=== PATIENT | male | born 1975 | race Caucasian/White ===

== ENCOUNTER 2020-04-10 09:28 | Outpatient (REF) | payer OTHER, SELFPAY ==
[2020-04-10 10:27] LABS: MANUAL DIFF FLAG NO
[2020-04-10 10:37] LABS: Basophils Percent Auto 0.5 % (0-2); Hematocrit 41.9 % (42-52); Hemoglobin 14.9 g/dl (14.0-18.0); Lymphocytes Absolute Auto 1.5 X10*3/uL (1.2-4.9); Lymphocytes Percent Auto 38.3 % (20-40); Mean Corpuscular HGB Conc 35.6 g/dl (31.0-36.0); Mean Corpuscular Hemoglobin 31.4 pg (27.0-33.0); Mean Corpuscular Volume 88.4 fL (80-98); Mean Platelet Volume 8.9 fL (9.4-12.4); Monocytes Absolute Auto 0.4 X10*3/uL (0.1-1.2); Monocytes Percent Auto 10.9 % (2-11); Neutrophils Absolute Auto 1.9 X10*3/uL (2.0-8.3); Neutrophils Percent Auto 49.3 % (45-73); Platelet Count 259 X10*3/uL (160-400); Red Blood Count 4.74 X10*6/uL (4.60-5.80); Red Cell Distribution Width 11.5 % (11.0-16.0); White Blood Count 3.8 X10*3/uL (4.8-10.8)
[2020-04-10 10:55] LABS: Alanine Aminotransferase 26 U/L (0-40); Albumin Level 4.5 g/dL (3.5-5.0); Alkaline Phosphatase 52 U/L (39-117); Anion Gap 13 (12-20); Aspartate Amino Transferase 24 U/L (5-37); Bilirubin Total 2.1 mg/dL (0.0-1.0); Blood Urea Nitrogen 18 mg/dL (9-16); Calcium 9.2 mg/dL (8.4-10.2); Carbon Dioxide 28 mmol/L (22-29); Chloride 103 mmol/L (96-108); Cholesterol 207 mg/dL; Estimated Glomerular Filt Rate > 60; Glucose Random 70 mg/dL (60-115); HDL Cholesterol 62 mg/dL; LDL Cholesterol Calculated 134 mg/dl; Potassium 4.3 mmol/l (3.3-5.1); Sodium 140 mmol/L (135-145); Total Protein 7.3 g/dL (6.5-8.0); Triglycerides 57 mg/dL
== END 2020-04-10 09:29 | disposition home or self-care (01) ==
LOC: HO.LAB 09:28
PROVIDERS: Visit Provider Internal Medicine
DX: Z00.00 Encounter for general adult medical examination without abnormal findings (principal); K21.9 Gastro-esophageal reflux disease without esophagitis; Z13.220 Encounter for screening for lipoid disorders
CPT/HCPCS: 36415; 80053; 80061; 85025

== ENCOUNTER → 2020-05-05 11:48 | Outpatient (BNVA) | payer OTHER, SELFPAY | PROVIDERS: PCP Internal Medicine; Visit Provider Physician Assistant | DX: Z76.89 Persons encountering health services in other specified circumstances (principal) ==

== ENCOUNTER 2020-07-29 10:03 | Day surgery (SDC) | payer OTHER, SELFPAY ==
--- NOTE | 2020-07-28 09:37 | P.CONAN_ITS ---
Documented by User: Mabel Bustamante 07/28/20 09:40 HPI - Anesthesia Eval Consult details Narrative: 44yo M for Upper Endoscopy [facility] Active Problems Active Problems: All Active Problems (Updated 05/05/20 @ 12:30 by Jacqueline Zapata PA-C) Acid reflux (Acute) Past Medical History Medical History Acid reflux Family History Family History Mother Chronic GERD Father Prostate cancer Surgical History Surgical History H/O lumbar discectomy Social History Social History Alcohol intake: current Smoking Status: Never smoker Use of substances other than those prescribed or required for medical reasons: No Advance Directives Information Provided: No service: Yes Current occupational status: employed Current occupation: [employer] Allergies Allergy/AdvReac Type Severity Reaction Status Date / Time No Known Allergies Allergy Verified 07/29/20 10:29 Home Medications Medication Instructions Recorded Confirmed Last Taken Type omeprazole 20 mg capsule,delayed 20 mg PO DAILY 05/05/20 07/24/20 Unknown History release Exam Exam Date and Time: July 28, [id number] Assessment and Plan Assessment Anesthesia Assessment: Chart Reviewed Documented by User: Sandy De La O 07/29/20 11:07 [facility] Past Medical History Medical History Acid reflux Family History Family History Mother Chronic GERD Father Prostate cancer Surgical History Surgical History H/O lumbar discectomy Social History Social History Alcohol intake: current Smoking Status: Never smoker Use of substances other than those prescribed or required for medical reasons: No Advance Directives Information Provided: No service: Yes Current occupational status: employed Current occupation: [employer] Med[employer] Allergies Allergy/AdvReac Type Severity Reaction Status Date / Time No Known Allergies Allergy Verified 07/29/20 10:29 Home Medications Medication Instructions Recorded Confirmed Last Taken Type omeprazole 20 mg capsule,delayed 20 mg PO DAILY 05/05/20 07/24/20 Unknown History release Exam Airway Mallampati Class: II TM Dist: >3cm Neck ROM: Full Loose/Missing/Broken Teeth: No Heart: RRR Lungs: CTA Assessment and Plan Assessment Anesthesia Assessment: Anesthesia Plan Discussed and Chart Reviewed Final Anesthetic Review NPO: Yes ASA Class: I Final Preanesthetic Review: Meds/Allgs Chart Reviewed, Consent Obtained/Reviewed and Anes Risks/Benef Reviewed Patient Risk: Low Procedure Risk: Intermediate Anesthetic Plan Anesthetic Plan: MAC: Disposition: Standard PACU
[2020-07-29 10:30] VITALS: BP 106/67; PULSE 55; RESP 16; TEMP 36.4; O2SAT 97; BMI 26.5
[2020-07-29] MEDS: Lactated Ringers 1,000 ML 100 ML IVCONT (10:46)
--- NOTE | 2020-07-29 11:17 | MHC.SHP ---
Pre-Procedural Eval Section B Chief Complaint: gerd Relevant Social History: None Present Medications: see Short Stay Collaborative assessment Medical History: Significant History (gerd) History of Previous Operations: Relevant previous surgery/procedure and date(s) (H/O lumbar discectomy) Allergies: Allergies Allergy/AdvReac Type Severity Reaction Status Date / Time No Known Allergies Allergy Verified 07/29/20 10:29 Review of Systems Sugical H&P ROS: Negative: Constitution, Cardiovascular, Respiratory, Neurological, Psychiatric, Hem-Onc, Allergic/Immunologic, Gastrointestinal, Genitourinary, Musculoskeletal, Integumentary, Endocrine and Eyes/Ears/Nose/Throat Exam Surgical H&P Exam: Normal: HEENT, Normal: Heart, Normal: Lungs, Normal: Extremities, Normal: Abdomen, Normal: Skin and Normal: Neurological Plan Diagnosis/Plan: Unchanged I have reviewed the history and physical and performed a pertinent physical examination on my patient. No changes have occurred unless specified.
--- NOTE | 2020-07-29 11:42 | PM.OP ---
Brief Operative Note Date of Service: 07/29/20 Pre-op diagnosis: GERD Post-op diagnosis: same Procedure: see op note Surgeon: Alexia Ashley MD Anesthesia: MAC Estimated blood loss (mL): 0 Condition: stable Disposition: PACU
--- NOTE | 2020-07-29 11:42 | W.PM.OPN ---
Operative Note Operative Note Date of Service: 07/29/20 Narrative: Procedure Description: EGD FLEXIBLE TRANSORAL UPPER GASTROINTESTINAL ENDOSCOPY UPPER ENDOSCOPY Consent: Indications for the procedure and potential complications of bleeding, perforation, reaction to medications and missed diagnosis were discussed with the patient and informed consent was obtained. Instrument: Olympus GIF H 190 J mid size upper endoscope Monitoring: Vital signs and clinical assessment, continuous EKG monitoring, Pulse oximetry, Carbon Dioxide monitoring and blood pressure monitoring were done throughout the procedure. Procedure: The patient was placed in the left lateral decubitis position and pre-procedure medications were administered and a bite block was placed. The endoscope was inserted into the mouth and advanced under direct vision to the third part of duodenum. A careful inspection was made as the upper endoscope was withdrawn including a retroflexed examination of the proximal stomach; Findings and interventions are described below. Findings: Larynx:normal Esophagus: GE junction at 42 cm, diaphragm hiatus at 42 cm, mild esophagitis, bx taken from GEJ, distal esophagus and proximal esophagus in different jars. Stomach: Patchy gastric erythema in antrum. Biopsies were obtained. Grade 2 flap valve on retroflexed examination of the cardia. Few fundic gland polyps noted. Duodenum: Normal bulb and descending duodenum, bx taken Intervention: Biopsies as noted above Impression/Findings: gastritis esophagitis PLAN: consider changing PPI check for nsaid use if ongoing sx then maybe refer for surgical options e.g linx or fundoplication vs hybrid APC of GEJ stress reduction
[2020-07-29 11:45] VITALS: BP 101/51; PULSE 56; RESP 16; TEMP 36.1; O2SAT 96
[2020-07-29 12:00] VITALS: BP 116/62; PULSE 57; RESP 18; O2SAT 99
== END 2020-07-29 12:35 | disposition home or self-care (01) ==
PROVIDERS: PCP Internal Medicine; Visit Provider Internal Medicine Gastroenterology
PROC: 0DJ08ZZ Inspection of Upper Intestinal Tract, Via Natural or Artificial Opening Endoscopic (ICD-10-PCS; CPT 43235; principal; 2020-07-29 12:00)
DX: K21.00 Gastro-esophageal reflux disease with esophagitis, without bleeding (principal); K29.50 Unspecified chronic gastritis without bleeding; K44.9 Diaphragmatic hernia without obstruction or gangrene; K31.7 Polyp of stomach and duodenum; Z79.899 Other long term (current) drug therapy
CPT/HCPCS: 43239; 88305; 88342

== ENCOUNTER → 2020-09-22 09:15 | Outpatient (BNVA) | payer OTHER, SELFPAY | PROVIDERS: PCP Internal Medicine; Visit Provider Physician Assistant ==

== ENCOUNTER → 2021-09-28 12:58 | Outpatient (BNVA) | payer OTHER, SELFPAY | PROVIDERS: PCP Internal Medicine; Referring Provider Internal Medicine; Visit Provider Internal Medicine Cardiovascular Disease | DX: R06.02 Shortness of breath (principal); R06.81 Apnea, not elsewhere classified | CPT/HCPCS: 93005; 99202 ==

== ENCOUNTER → 2021-10-27 14:56 | Outpatient (REF) | payer OTHER, SELFPAY ==
--- NOTE | 2021-10-27 15:01 | HM_ITS ---
Conclusion: 1. Patient was monitored for total period of 2 days and 22 hours 2. Baseline was normal sinus rhythm with average heart rate of 59 beats per minute 3. No significant pauses noted 4. 3 short episodes of supraventricular tachycardia noted with longest lasting 12 beats 5. Very rare ectopy 6. No patient reported events MTDD
--- NOTE | 2021-10-27 15:01 | CA_ITS ---
Transthoracic Echocardiogram Patient (Last, First, Middle): Umair Hunter M Gender: Male Date of : 1975 Age: 45 Procedure Date: 10/27/2021 Procedure Type: Transthoracic Echocardiogram Location: OP Height: 177.8 cm Weight: 86.18 kg BSA: 2.04 m2 Heart Rate: bpm BP: 118 / 60 mmHg Bedspread Inspector: Referring MD: Isidoro Galdamez MD Pretzel Packer: Isidoro Galdamez MD Symptoms: R06.02 - Shortness of breath Study Quality: Good ECG Rhythm: Sinus Conclusions: - Normal study Findings Left Ventricle Normal left ventricular size, thickness, and systolic function. The visually estimated ejection fraction is between 55-60%. Spectral Doppler is indicative of a normal filling pattern. Right Ventricle Normal right ventricular cavity size and systolic function. Atria Both atria are normal in size. There is no evidence of interatrial shunt. Aortic Valve Normal aortic valve structure and function. There is no aortic valve stenosis. There is no aortic valve regurgitation. Mitral Valve Normal mitral valve structure and function. There is trace mitral valve regurgitation. There is no mitral valve stenosis. Pulmonic Valve The pulmonic valve is likely normal. Tricuspid Valve Normal tricuspid valve structure. There is trace tricuspid valve regurgitation. The right ventricular systolic pressure is normal. The right ventricular systolic pressure is 22 mmHg. Normal right atrial pressure. There is no evidence of pulmonary hypertension. Great Vessels All visible segments of the aorta are normal in size. The pulmonary artery was not well visualized. Venous The inferior vena cava is normal in size and collapses greater than 50% with inspiration. Pericardium/Pleural There is no evidence of pericardial effusion. Measurements 2D Linear Measurements IVSd: 1.05 0.6-0.9/0.6-1.0 cm LVIDd: 4.85 3.9-5.3/4.2-5.9 cm LVIDd Index: 2.38 2.4-3.2/2.2-3.1 cm/m2 LVIDs: 3.09 2.0-3.6 cm LVPWd: 0.99 0.7-1.1 cm LA Diam: 4.00 2.7-3.8/3.0-4.0 cm LAIDs Index: 1.96 1.5-2.3 cm/m2 LV Mass: 221.37 67-162/88-224 g LV Mass Index: 108.51 43-95/49-115 g/m2 LVOT Diam: 2.30 3.0+(-)1.3 cm 2D Systolic Function EF 4C: 51.70 >55% EF 2C: 60.30 >55% EF BiP: 55.80 >55% Mitral Valve MV Pk E: 0.86 MV PK A: 0.54 MV Decel Time: 320.00 E/A: 1.60 E'Lateral: 14.00 E'Medial: 11.30 E/E' Med: 7.60 E/E' Lat: 6.10 PHT: 94.00 MVA PHT: 2.34 Decel [place]: 2.67 Aortic Valve AoV Pk Zachary: 1.32 AoV Mn Zachary: 0.88 AoV VTI: 0.32 AoV Pk Grad: 7.00 Aov Mn Grad: 4.00 CRISTINO Cont.VTI: 2.88 LVOT LVOT Pk Zachary: 1.04 LVOT Mn Zachary: 0.66 LVOT VTI: 0.22 LVOT Pk Grad: 4.00 LVOT Mn Grad: 2.00 LVOT Diam: 2.30 LVOT Area: 4.15 Diastolic Function MV Pk E: 0.86 MV Pk A: 0.54 E/A: 1.60 E'Medial: 11.30 E/E' Med: 7.60 E' Laterial: 14.00 E/E' Lat: 6.10 Right Ventricle TAPSE (mm): 30.00 TVS' Zachary: 12.30 Tricuspid Valve TR Pk Zachary: 2.18 TR Pk Grad: 19.00 RA Press: 3.00 RVSP: 22.00 Great Vessels Aorta Sinus of Valsalva: 3.00 2.0-3.5 cm Ao Asc: 2.60 2.1-3.4 cm Pulmonary Valve PV Pk Zachary: 1.20 Peak PV Grad: 6.00 Updated in Other Vendor System with Status of Final Isidoro Galdamez MD electronically signed on 10/28/2021 8:29:40 AM with status of Final
== END ==
LOC: HO.CARD 14:56
PROVIDERS: PCP Internal Medicine; Visit Provider Internal Medicine Cardiovascular Disease
DX: R06.02 Shortness of breath (principal)
CPT/HCPCS: 93242; 93306

== ENCOUNTER → 2021-11-08 08:34 | Outpatient (REF) | payer OTHER, SELFPAY ==
--- NOTE | 2021-11-08 08:37 | CA_ITS ---
Acquisition Time: 2021-11-08 08:37:55 Total Exercise Time: 00:12:00 Test Indications: CP Medications: SEE CHART Protocol: JUAN DAVID Max HR: 162 BPM 91% of Pred: 177 BPM Max BP: 170/030 mmHG Max Work Load: 13.7 METS Exercise stress test with exercise 12 min of Juan David protocol, achieving 91% MPHR. 13.4 METs, without anginal symptoms, without arrythmia, with normotensive response to exercise, without EKG changes meeting criteria for ischemia: there is artifact present at and near peak exercise making tracings more challenging to read however no consistent or clear ischemia noted.. Test reviewed with Dr Gallegos. Referred By: Isidoro Galdamez Overread By: PACO REZA
== END ==
LOC: HO.CARD 08:34
PROVIDERS: Visit Provider Internal Medicine Cardiovascular Disease
DX: R06.02 Shortness of breath (principal)
CPT/HCPCS: 93017

== ENCOUNTER → 2021-12-06 20:45 | Outpatient (REF) | payer OTHER, SELFPAY | LOC: HO.SL 20:45 | PROVIDERS: Visit Provider Internal Medicine Cardiovascular Disease | DX: R06.81 Apnea, not elsewhere classified (principal) | CPT/HCPCS: 95806 ==

== ENCOUNTER → 2021-12-22 15:11 | Outpatient (BNVA) | payer OTHER, SELFPAY | PROVIDERS: PCP Internal Medicine; Referring Provider Internal Medicine; Visit Provider Internal Medicine Cardiovascular Disease | DX: G47.30 Sleep apnea, unspecified (principal); R06.02 Shortness of breath | CPT/HCPCS: 99212 ==

== ENCOUNTER → 2022-03-23 07:54 | Outpatient (BNVA) | payer OTHER, SELFPAY | PROVIDERS: PCP Internal Medicine; Visit Provider Nurse Practitioner Family | DX: R06.83 Snoring (principal); R06.02 Shortness of breath; R40.0 Somnolence; K21.9 Gastro-esophageal reflux disease without esophagitis; Z79.899 Other long term (current) drug therapy | CPT/HCPCS: 99202 ==

== ENCOUNTER 2022-11-15 09:53 | Outpatient (REF) | payer OTHER, SELFPAY ==
[2022-11-15 10:49] LABS: Eosinophils Absolute Auto 0.1 X10*3/uL (0.0-0.4); Eosinophils Percent Auto 2.2 % (0-4); Hematocrit 44.3 % (42.0-52.0); Hemoglobin 15.4 g/dl (14.0-18.0); Lymphocytes Absolute Auto 1.3 X10*3/uL (1.2-4.9); Lymphocytes Percent Auto 41.4 % (20-40); MANUAL DIFF FLAG NO; Mean Corpuscular HGB Conc 34.8 g/dl (31.0-36.0); Mean Corpuscular Volume 89.1 fL (80.0-98.0); Mean Platelet Volume 9.3 fL (9.4-12.4); Monocytes Absolute Auto 0.3 X10*3/uL (0.1-1.2); Monocytes Percent Auto 8.9 % (2-11); Neutrophils Absolute Auto 1.5 x10*3/uL (2.0-8.3); Neutrophils Percent Auto 46.5 % (45-73); Platelet Count 243 X10*3/uL (160-400); Red Blood Count 4.97 X10*6/uL (4.60-5.80); Red Cell Distribution Width 11.6 % (11.0-16.0); White Blood Count 3.1 X10*3/uL (4.8-10.8)
[2022-11-15 11:17] LABS: Alanine Aminotransferase 34 U/L (0-40); Albumin Level 4.7 g/dL (3.5-5.0); Alkaline Phosphatase 48 U/L (39-117); Anion Gap 9 (12-20); Aspartate Amino Transferase 24 U/L (5-37); Bilirubin Total 1.5 mg/dL (0.0-1.0); Blood Urea Nitrogen 16 mg/dL (9-16); Calcium 9.9 mg/dL (8.4-10.2); Carbon Dioxide 32 mmol/L (22-29); Chloride 104 mmol/L (96-108); Cholesterol 146 mg/dL; Estimated Glomerular Filt Rate > 60; Glucose Fasting 97 mg/dL (60-99); HDL Cholesterol 61 mg/dL; LDL Cholesterol Calculated 74 mg/dl; Potassium 4.3 mmol/L (3.3-5.1); Sodium 141 mmol/L (135-145); Thyroid Stimulating Hormone 0.97 uIU/mL (0.32-4.0); Total Protein 7.6 g/dL (6.5-8.0); Triglycerides 59 mg/dL
[2022-11-15 12:35] LABS: Folate 9.7 ng/mL (> or = 4.0); Prostate Specific Antigen 0.98 ng/mL (<0.05-4.0); Vitamin B12 362 pg/mL (200-900)
== END 2022-11-15 09:54 | disposition home or self-care (01) ==
LOC: HO.10HDL 09:53
PROVIDERS: Visit Provider Internal Medicine
DX: Z00.00 Encounter for general adult medical examination without abnormal findings (principal); Z12.5 Encounter for screening for malignant neoplasm of prostate; E78.00 Pure hypercholesterolemia, unspecified; I10 Essential (primary) hypertension; K20.90 Esophagitis, unspecified without bleeding; Z80.42 Family history of malignant neoplasm of prostate
CPT/HCPCS: 36415; 80053; 80061; 82607; 82746; 84153; 84443; 85025

== ENCOUNTER 2023-06-22 07:45 | Outpatient (REF) | payer OTHER, SELFPAY ==
[2023-06-22 10:54] LABS: MANUAL DIFF FLAG NO
[2023-06-22 11:06] LABS: Basophils Percent Auto 1.1 % (0-2); Eosinophils Absolute Auto 0.1 X10*3/uL (0.0-0.4); Eosinophils Percent Auto 2.2 % (0-4); Hematocrit 41.8 % (42.0-52.0); Hemoglobin 14.7 g/dl (14.0-18.0); Imm Gran Abs Auto 0.01 X10*3/uL (0.00-0.03); Imm Gran Pct Auto 0.3 % (0.0-0.4); Lymphocytes Absolute Auto 1.4 X10*3/uL (1.2-4.9); Lymphocytes Percent Auto 40.1 % (20-40); Mean Corpuscular HGB Conc 35.2 g/dl (31.0-36.0); Mean Corpuscular Hemoglobin 30.9 pg (27.0-33.0); Monocytes Absolute Auto 0.3 X10*3/uL (0.1-1.2); Monocytes Percent Auto 8.1 % (2-11); Neutrophils Absolute Auto 1.7 x10*3/uL (2.0-8.3); Neutrophils Percent Auto 48.2 % (45-73); Platelet Count 230 X10*3/uL (160-400); Red Blood Count 4.75 X10*6/uL (4.60-5.80); Red Cell Distribution Width 11.8 % (11.0-16.0); White Blood Count 3.6 X10*3/uL (4.8-10.8)
[2023-06-22 11:30] LABS: Alanine Aminotransferase 39 U/L (0-40); Albumin Level 4.3 g/dL (3.5-5.0); Alkaline Phosphatase 45 U/L (39-117); Anion Gap 10 (12-20); Aspartate Amino Transferase 28 U/L (5-37); Bilirubin Total 1.5 mg/dL (0.0-1.0); Blood Urea Nitrogen 16 mg/dL (9-16); Calcium 9.2 mg/dL (8.4-10.2); Carbon Dioxide 30 mmol/L (22-29); Chloride 105 mmol/L (96-108); Cholesterol 157 mg/dL (<200); Estimated Glomerular Filt Rate > 60; Glucose Random 85 mg/dL (60-115); HDL Cholesterol 64 mg/dL (>40); LDL Cholesterol Calculated 81 mg/dL (<100); Potassium 3.8 mmol/L (3.3-5.1); Sodium 141 mmol/L (135-145); Triglycerides 63 mg/dL (<150)
== END 2023-06-22 07:46 | disposition home or self-care (01) ==
LOC: HO.10HDL 07:45
PROVIDERS: Visit Provider Internal Medicine
DX: Z00.00 Encounter for general adult medical examination without abnormal findings (principal); E78.00 Pure hypercholesterolemia, unspecified; I10 Essential (primary) hypertension; M54.2 Cervicalgia
CPT/HCPCS: 36415; 80053; 80061; 85025

== ENCOUNTER 2023-11-16 12:17 | Outpatient (REF) | payer OTHER, SELFPAY ==
[2023-11-16 13:32] LABS: Alanine Aminotransferase 27 U/L (0-40); Albumin Level 4.6 g/dL (3.5-5.0); Alkaline Phosphatase 49 U/L (39-117); Aspartate Amino Transferase 20 U/L (5-37); Bilirubin Direct 0.4 mg/dL (0.0-0.5); Bilirubin Total 1.3 mg/dL (0.0-1.0); Total Protein 7.3 g/dL (6.5-8.0)
== END 2023-11-16 12:18 | disposition home or self-care (01) ==
LOC: HO.10HDL 12:17
PROVIDERS: Visit Provider Internal Medicine
DX: E80.6 Other disorders of bilirubin metabolism (principal)
CPT/HCPCS: 36415; 80076

== ENCOUNTER 2024-02-28 09:47 | Day surgery (SDC) | payer BC, SELFPAY ==
[2024-02-26 14:26] VITALS: BMI 25.1
--- NOTE | 2024-02-27 08:35 | P.CONAN_ITS ---
Documented by User: Mabel Bustamante NP 02/27/24 08:35 HPI - Anesthesia Eval Consult details Narrative: 48yo M for Upper Endoscopy and Colonoscopy [facility] Active Problems Active Problems: All Active Problems Daytime sleepiness (Acute) Snoring (Acute) SOB (shortness of breath) (Acute) Acid reflux (Acute) Past Medical History Medical History IBS (irritable bowel syndrome) Acid reflux Family History Family History Mother Chronic GERD Father Prostate cancer Surgical History Surgical History History of surgery on arm History of esophagogastroduodenoscopy (EGD) H/O lumbar discectomy Social History Social History (Updated 02/26/24 @ 14:25 by Comfort Zamora RN) Household Members: None Household Members Other:: alone Are you a primary career law clerk to a significant other at home: No Do you presently have visiting nurse or other home services: No Alcohol intake: current Alcohol intake frequency: 3 or more drinks per day Patient Tobacco Use Status: Never used Tobacco Use of substances other than those prescribed or required for medical reasons: No Have you been hit, kicked, punched, or otherwise hurt by someone within the past year? If so, by whom?: No Are you DNR?: No Advance Directives: No Advance Directives Information Provided: Yes Recently lost weight without trying: No Nutrition Risks: No Nutritional Risk service: Yes Current occupational status: employed Current occupation: [employer] Allergies Allergy/AdvReac Type Severity Reaction Status Date / Time No Known Allergies Allergy Verified 03/23/22 08:08 Home Medications ?Medication ?Instructions ?Recorded ?Confirmed ?Last Taken ?Type omeprazole 20 mg capsule,delayed 20 mg PO DAILY 05/05/20 02/26/24 Unknown History release atorvastatin 20 mg tablet 20 mg PO DAILY 09/28/21 02/26/24 Unknown History Exam Height,Weight and Vital Signs: Height 5 ft 10 in Weight 79.379 kg Assessment and Plan Assessment Anesthesia Assessment: Chart Reviewed Documented by User: Lucía Munoz MD 02/28/24 10:59 [facility] Past Medical History Medical History IBS (irritable bowel syndrome) Acid reflux Family History Family History Mother Chronic GERD Father Prostate cancer Family history of problems with anesthesia: No Surgical History Surgical History History of surgery on arm History of esophagogastroduodenoscopy (EGD) H/O lumbar discectomy History of Problems with Anesthesia: No Social History Social History (Updated 02/26/24 @ 14:25 by Comfort Zamora RN) Household Members: None Household Members Other:: alone Are you a primary career law clerk to a significant other at home: No Do you presently have visiting nurse or other home services: No Alcohol intake: current Alcohol intake frequency: 3 or more drinks per day Patient Tobacco Use Status: Never used Tobacco Use of substances other than those prescribed or required for medical reasons: No Have you been hit, kicked, punched, or otherwise hurt by someone within the past year? If so, by whom?: No Are you DNR?: No Advance Directives: No Advance Directives Information Provided: Yes Recently lost weight without trying: No Nutrition Risks: No Nutritional Risk service: Yes Current occupational status: employed Current occupation: [employer] Allergies Allergy/AdvReac Type Severity Reaction Status Date / Time No Known Allergies Allergy Verified 03/23/22 08:08 Home Medications ?Medication ?Instructions ?Recorded ?Confirmed ?Last Taken ?Type omeprazole 20 mg capsule,delayed 20 mg PO DAILY 05/05/20 02/26/24 Unknown History release atorvastatin 20 mg tablet 20 mg PO DAILY 09/28/21 02/26/24 Unknown History Exam Airway Mallampati Class: II (caps 2 top front, botton front) TM Dist: >3cm Neck ROM: Full Heart: rrr Lungs: cta Assessment and Plan Assessment Anesthesia Assessment: Anesthesia Plan Discussed Final Anesthetic Review Family History of Problems with Anesthesia: No History of Problems with Anesthesia: No NPO: Yes ASA Class: II Final Preanesthetic Review: No Changes in Pt Med Stat and Meds/Allgs Chart Reviewed Patient Risk: Low Procedure Risk: Intermediate Anesthetic Plan Anesthetic Plan: MAC: Disposition: Standard PACU
[2024-02-28 10:15] VITALS: BMI 24.7
[2024-02-28 10:53] VITALS: BP 124/69; PULSE 64; RESP 16; TEMP 36.9; O2SAT 98
[2024-02-28] MEDS: Lactated Ringers 1,000 ML 100 ML IVCONT (11:05)
[2024-02-28 12:42] VITALS: BP 108/63; PULSE 66; RESP 16; TEMP 36.4; O2SAT 98
--- NOTE | 2024-02-28 12:46 | PM.OP ---
Brief Operative Note Date of Service: 02/28/24 Pre-op diagnosis: GERD, Screening Post-op diagnosis: other (Hiatal hernia, Gastric polyps, Colon polyps) Procedure: EGD with biopsies, Colonoscopy to the cecum and TI with bx/removal of polyp and hot snare polypectomy x 3 Surgeon: Luis M Santo MD Anesthesia: MAC Was an Public Health Sanitarian Technician used for this Procedure?: No Estimated blood loss (mL): 2.0 Pathology: other (A. Gastric polyps B. EG Junction at 39cm C. Cecal polyp D. Transverse colon polyp E. Polyps at 70cm) Condition: stable Disposition: PACU
[2024-02-28 12:57] VITALS: BP 99/63; PULSE 63; RESP 16; TEMP 36.4; O2SAT 98
[2024-02-28 13:12] VITALS: BP 108/61; PULSE 64; RESP 16; TEMP 36.4; O2SAT 97
--- NOTE | 2024-02-28 21:50 | OP_ITS ---
DATE OF SERVICE: 02/28/2024 SURGEON: Luis M Santo MD INDICATIONS: The patient presents for evaluation of gastroesophageal reflux, colorectal cancer screening. Full consent has been obtained from him for this, including risks of bleeding and perforation. PREOPERATIVE DIAGNOSIS: POSTOPERATIVE DIAGNOSIS: PROCEDURE PERFORMED: Esophagogastroduodenoscopy with biopsies, and colonoscopy to the cecum and terminal ileum with biopsy and removal of polyp, and hot snare polypectomy x3. ESTIMATED BLOOD LOSS: COMPLICATIONS: ANESTHESIA: Monitored anesthesia care. ASSISTANTS: SPECIMENS: PREOPERATIVE DIAGNOSES: Gastroesophageal reflux, colorectal cancer screening. POSTOPERATIVE DIAGNOSES: Gastroesophageal reflux, colorectal cancer screening, small hiatal hernia, gastric polyps, colon polyps, occasional diverticulosis, and internal hemorrhoids. DESCRIPTION OF PROCEDURE: The patient was placed in the left lateral decubitus position. The Olympus video gastroscope was passed in the posterior oropharynx and upper esophagus under direct vision. The scope was passed slowly into the distal esophagus. The gastroesophageal junction appeared at 39 cm. There was some very slight irregularity consistent with reflux but no evidence of esophagitis nor any definitive evidence of Miller mucosa. The scope entered the stomach. There was a small hiatal hernia. The scope was advanced to the pylorus and the duodenum was cannulated to the descending portion. The duodenum including the bulb appeared normal without mass or ulceration. The scope was withdrawn back to the stomach. The gastric antrum and body appeared normal with good peristalsis. The scope was retroflexed visualizing the proximal stomach carefully which appeared normal, without any sign of mass or ulceration, other than some hyperplastic appearing gastric polyps. Two of these were biopsied. The scope was withdrawn back into the esophagus. Biopsies were obtained at the EG junction at 39 cm. Proximal to that, the esophageal mucosa appeared normal. The scope was withdrawn from the patient. He was turned around for the colonoscopy. The digital rectal exam revealed no abnormalities. The Olympus video pediatric colonoscope was entered into the rectum and advanced easily to the cecum. Once in the cecum, I did identify normal-appearing cecal pouch other than approximately 3 mm polyp, which was biopsied and completely removed with a cold biopsy forceps. The appendiceal orifice appeared normal. The terminal ileum was cannulated and appeared normal. The scope was withdrawn back in the colon. There was transillumination of light deep in the right lower quadrant. The scope was then slowly withdrawn assessing all mucosal surfaces carefully. Preparation was excellent. In the area of the proximal transverse colon was what appeared to be an approximately 12 mm polyp, which was removed by hot snare polypectomy in piecemeal fashion and recovered by suction. The polypectomy site appeared clean, without any sign of residual polyp nor bleeding. At 70 cm were 2 polyps between 8 and 10 mm in diameter. These were both removed by hot snare polypectomy and recovered by suction. The polypectomy sites appeared clean, without any sign of residual polyp nor bleeding. I did not visualize any other polyps, colitis, nor angiodysplasia. There were occasional diverticula noted in the sigmoid colon. In the rectum, scope was retroflexed visualizing small internal hemorrhoids, but no other pathology. The rectal mucosa appeared normal. The scope was straightened and withdrawn from the patient. He tolerated both procedures well and was returned to the recovery area in stable condition. IMPRESSION: 1. Colon polyps. 2. Occasional sigmoid diverticulosis. 3. Small internal hemorrhoids. 4. Small hiatal hernia, gastroesophageal reflux. 5. Gastric polyps. PLAN: The results of the biopsies will be checked. I would recommend a repeat colonoscopy in 3 years for further screening and surveillance. He will continue his daily omeprazole for relief of reflux. He was advised not to use any aspirin or NSAIDs for 1 week. He will otherwise see me on a p.r.n. basis. MD GABRIEL Boucher/REJI / [phone]
== END 2024-02-28 13:30 | disposition home or self-care (01) ==
PROVIDERS: PCP Internal Medicine; Visit Provider Internal Medicine
PROC: (CPT 43239; principal; 2024-02-28 11:20)
DX: K31.7 Polyp of stomach and duodenum (principal); K22.70 Barrett's esophagus without dysplasia; K21.9 Gastro-esophageal reflux disease without esophagitis; Z12.11 Encounter for screening for malignant neoplasm of colon; D12.3 Benign neoplasm of transverse colon; D12.4 Benign neoplasm of descending colon; K57.30 Diverticulosis of large intestine without perforation or abscess without bleeding; K64.8 Other hemorrhoids; Z83.719 Family history of colon polyps, unspecified; E78.5 Hyperlipidemia, unspecified; E80.6 Other disorders of bilirubin metabolism; K58.9 Irritable bowel syndrome, unspecified
CPT/HCPCS: 43239; 45385; 45380; 88305; 88313; 88342; J1100; J1596; J2003; J2371; J2704

== ENCOUNTER 2025-01-07 08:26 | Outpatient (REF) | payer BC, SELFPAY ==
--- OUTSIDE RECORDS SUMMARY | 2024-02-28 07:20 | XMS_ITS ---
Author Organization [facility] Address [address] [place] [address] Care Team Providers Care Peoples[employer] H[employer] Developer Name Role Phone PauloWaylon mahmoodnima Primary Care Provider Unavailab Luis M Bush Unavailable [phone] REASON FOR VISIT gerd,screening Problems Problem Type SNOMED Code ICD Code Onset Dates Problem Status W/U Status Risk Notes Problem Diverticular disease of colon (900824872) Diverticulosis of large intestine without perforation or abscess without bleeding (K57.30) Active confirmed Problem Gastro-esophagea l reflux disease without esophagitis (572039785) Gastro-esophageal reflux disease without esophagitis (K21.9) Active confirmed Problem Benign neoplasm of stomach (38400926) Gastric polyps (K31.7) Active confirmed Encounters Encounter Location Date Provider Diagnosis [facility] Outpatient [address], [place] [id number] 02/28/2024 Luis M Santo Colon cancer scree kraig Z12.11 ; Colon polyps K63.5 ; Diverticulosis of large intestine without perforation or abscess without bleeding K57.30 ; Other hemorrhoids K64.8 ; Gastro-esophageal reflux disease without esophagitis K21.9 ; Gastric polyps K31.7 and Hernia, hiatal K44.9 Assessments Encounter Date Diagnosis (ICD Code) Assessment Notes Treatment Notes Treatment Clinical Notes Section Notes 02/28/2024 Colon cancer screening (ICD-10 - Z12.11) 02/28/2024 Colon polyps (ICD-10 - K63.5) 02/28/2024 Diverticulosis of large intestine without perforation or abscess without bleeding (ICD-10 - K57.30) 02/28/2024 Other hemorrhoids (ICD-10 - K64.8) 02/28/2024 Gastro-esophageal reflux disease without esophagitis (ICD-10 - K21.9) 02/28/2024 Gastric polyps (ICD-10 - K31.7) 02/28/2024 Hernia, hiatal (ICD-10 - K44.9) Plan Of Treatment No Information Progress Notes * CINDY BOYCEDOB:1975 (49 yo M)Acc No.[id number]:02/28/2024 EGD and COL/MAC Patient: CINDY TRUJILLO Provider: Emmie Santo MD :1975 A ge:48 Y S ex:Male Date:02/28/2024 Address:[place] [address], [id number] Pcp:Julieta Castaneda Subjective: * Chief Complaints: * 1 . Gerd,screening. * Medical History: Objective: * Vitals: Assessment: * Assessment: 1. C olon cancer screening - Z12.11 (Primary) 2 . C olon polyps - K63.5? 3. D iverticulosis of large intestine without perforation or abscess without bleeding - K57.30 4 . O ther hemorrhoids - K64.8 5 . G krysta-esophageal reflux disease without esophagitis - K21.9 6 . G astric polyps - K31.7? 7. H ernia, hiatal - K44.9 Plan: * Treatment: * Procedure Codes: 4 5385 LESION REMOVAL COLONOSCOPY, Modifiers: [place] , [address] COLONOSCOPY AND BIOPSY, Modifiers: 59 , [place], [address] UPPER GI ENDOSCOPY, BIOPSY * * The named appointment provid er may or may not be the originator of this progress note, and it is not deemed complete until electronically signed by the appointment provider. Sign off status: Pending * Provider: Emmie Santo MD Date: 1 04/29/2023 Generated for Mychal joyce/Aleida/Sejalitting on: 0 01/07/2025 10:02 AM EDT
[2025-01-07 09:57] LABS: Alanine Aminotransferase 43 U/L (0-40); Albumin Level 4.8 g/dL (3.5-5.0); Alkaline Phosphatase 50 U/L (39-117); Anion Gap 9 (12-20); Aspartate Amino Transferase 31 U/L (5-37); Blood Urea Nitrogen 14 mg/dL (9-16); Calcium 9.5 mg/dL (8.4-10.2); Carbon Dioxide 31 mmol/L (22-29); Chloride 105 mmol/L (96-108); Cholesterol 162 mg/dL (<200); Estimated Glomerular Filt Rate > 60; HDL Cholesterol 52 mg/dL (>40); Potassium 4.2 mmol/L (3.3-5.1); Sodium 141 mmol/L (135-145); Total Protein 7.1 g/dL (6.5-8.0); Triglycerides 117 mg/dL (<150)
--- OUTSIDE RECORDS SUMMARY | 2025-01-07 10:02 | XMS_ITS | Clinical Summary ---
Author Organization [address] [facility] Address [address] [place] [address] Phone Care Team Providers Care Can Intake Worker Name Role Phone Julieta Castaneda MD Primary Care Provider [phone] Social History Tobacco Use Types Packs/Day Years Used Date Smoking Tobacco: Never Assessed Sex and Gender Information Value Date Recorded Sex Assigned at Not on file Legal Sex Male 7:26 PM EST Gender Identity Not on file Sexual Orientation Not on file Plan of Treatment Health Maintenance Due Date Last Done Comments Hepatitis B Vaccines (1 of 3 - 19+ 3-dose series) 1996 Cholesterol Screening (Lipid Panel) 03/26/2022 Colorectal Cancer Screening: Colonoscopy 03/26/2022 HIV Screening 03/26/2022 Hepatitis C Screening 03/26/2022 Social Influencers of Health Screening 03/26/2022 Depression Screening 04/24/2024 COVID-19 Vaccine ( season) 2024 05/11/2021, 10/07/2020 Influenza Vaccine (#1) 2024 , 01/30/2020, 03/06/2018, Additional history exists Hypertension/CHF/CAD Annual BMP Blood Test 06/27/2025 06/27/2024 DTaP,Tdap,and Td Vaccines (3 - Td or Tdap) 04/24/2026 04/24/2016, 04/24/2016 HIB Vaccines Aged Out No longer eligi ble based on patient's age to complete this topic HPV Vaccines Aged Out No longer eligi ble based on patient's age to complete this topic Hepatitis A Vaccines Aged Out No long er eligible based on patient's age to complete this topic IPV Vaccines Aged Out No longer eligi ble based on patient's age to complete this topic MMR Vaccines Aged Out No longer eligi ble based on patient's age to complete this topic Meningococcal ACWY Vaccine Aged Out N o longer eligible based on patient's age to complete this topic Meningococcal B Vaccine Aged Out No l onger eligible based on patient's age to complete this topic Pneumococcal Vaccine: Pediatrics (0 to 5 Years) and At-Risk Patients (6 to 49 Years) Aged Out No longer eligible based on patient's age to complete this topic RSV Immunization Patients Under 20 months Aged Out No longer eligible based on patient's age to complete this topic Varicella Vaccines Aged Out No longer eligible based on patient's age to complete this topic Procedures Procedure Name Priority Date/Time Associated Diagnosis Comments COMPREHENSIVE METABOLIC PANEL Routine 06/27/2024 8:19 AM EST Pure hypercholesterolemia , unspecified Essential (primary) hypertension from Last 3 Months or Most Recently Relevant to Health Maintenance Results * (ABNORMAL) Comprehensive metabolic panel (06/27/2024 8:19 AM EST) Sodium 139 133 - 145 mmol/L LAB CHEMISTRY METHOD 06/27/2024 10:23 AM [facility] Potassium 4.1 3.5 - 5.5 mmol/L LAB CHEMISTRY METHOD 06/27/2024 10:23 AM [facility] Chloride 104 96 - 110 mmol/L LAB CHEMISTRY METHOD 06/27/2024 10:23 AM [facility] CO2 28 21 - 32 mmol/L LAB CHEMISTRY METHOD 06/27/2024 10:23 AM [facility] Anion Gap 7 3 - 11 LAB CHEMISTRY METHOD 06/27/2024 10:23 AM [facility] Glucose 122(H) 70 - 100 mg/dL LAB CHEMISTRY METHOD 06/27/2024 10:23 AM [facility] BUN 16 5 - 25 mg/dL LAB CHEMISTRY METHOD 06/27/2024 10:23 AM [facility] Creatinine 1.03 0.70 - 1.30 mg/dL LAB CHEMISTRY METHOD 06/27/2024 10:23 AM [facility] eGFR 91 >=60 mL/min/1. 73m2 LAB CHEMISTRY METHOD 06/27/2024 10:23 AM [facility] Comment:Calculation based on the Chronic Kidney Disease Epidemiology Collaboration (CKD-EPI) equation refit without adjustment for race. BUN/Creatinine Ratio 15.5 LAB CHEMISTRY METHOD 06/27/2024 10:23 AM [facility] Calcium 9.6 8.5 - 10.5 mg/dL LAB CHEMISTRY METHOD 06/27/2024 10:23 AM [facility] AST (SGOT) 19 10 - 42 unit/L LAB CHEMISTRY METHOD 06/27/2024 10:23 AM [facility] ALT (SGPT) 41 10 - 60 unit/L LAB CHEMISTRY METHOD 06/27/2024 10:23 AM [facility] Alkaline Phosphatase 54 42 - 121 unit/L LAB CHEMISTRY METHOD 06/27/2024 10:23 AM [facility] Total Protein 7.5 6.0 - 8.0 g/dL LAB CHEMISTRY METHOD 06/27/2024 10:23 AM [facility] Albumin 4.5 3.2 - 5.0 g/dL LAB CHEMISTRY METHOD 06/27/2024 10:23 AM [facility] Total Bilirubin 1.5(H) 0.0 - 1.4 mg/dL LAB CHEMISTRY METHOD 06/27/2024 10:23 AM [facility] Blood Venous blood specimen / Unknown Venipuncture / Unknown 06/27/2024 8:19 AM EST 06/27/2024 9:30 AM EST us Julieta Castaneda MD LAB BLOOD ORDERABLES Final Re sult [facility] [address] [place] [address], from Last 3 Months or Most Recently Relevant to Health Maintenance Insurance [facility] Care Teams Can Intake Worker Relationship Specialty Start Date End Date Julieta Castaneda MD [address] [place] [address] [place] [address] PCP - General Internal Medicine 06/27/24
--- OUTSIDE RECORDS SUMMARY | 2025-01-07 10:02 | XMS_ITS | Patient Health Record ---
Author Organization [facility] Address [address] [place] [address] Care Team Providers Care Morphologist Name Role Phone PauloJulieta mahmood Primary Care Provider Unavailab Luis M Bush Unavailable [phone] Allergies No Known Allergies Results Component Value Reference Range Notes Pathology (Not yet reviewed by provider) Interpretation: Performing Lab:[facility], [address] [place] [id number] Notes/Report: Reason For Referral No Information Medications Medication SIG (Take, Route, Frequency, Duration) Notes Start Date End Date Status Omeprazole 20 MG 1 capsule 30 minutes before morning meal Orally Once a day Active Atorvastatin Calcium 20 MG 1 tablet Oral ly Once a day Active Social History Tobacco Use: Social History Observation Description Date Details (start date - stop date) Never Smoker NA - NA Tobacco Use/Smoking Question Answer Notes Patient is a nonsmoker Alcohol Screen Question Answer Notes Did you have a drink contain ing alcohol in the past year? Yes How often did you have a dri nk containing alcohol in the past year? 4 or more times a week (4 points) How many drinks did you have on a typical day when you were drinking in the past year? 3 or 4 drinks (1 point) Points 5 Interpretation Positive Section Notes: 3-4 beers 5 nights a week, a nd a little more on the weekends Problems Problem Type SNOMED Code ICD Code Onset Dates Problem Status W/U Status Risk Notes Problem Colon cancer screening (403604992) Colon cancer screening (Z12.11) Active confirmed Problem Irritable bowel syndrome (15293917) Irritable bowel syndrome (K58.9) Active confirmed Problem Gastro-esophageal reflux disease without esophagitis (072266598) Gastro-esophageal reflux disease without esophagitis (K21.9) Active confirmed Problem Diverticular disease of colon (081913267) Diverticulosis of large intestine without perforation or abscess without bleeding (K57.30) Active confirmed Problem Benign neoplasm of stomach (44509351) Gastric polyps (K31.7) Active confirmed Problem Hyperbilirubinemia (34927804) Hyperbilirubinemia (E80.6) Active confirmed Problem Gastroesophageal reflux disease (disorder) (482255054) Chronic GERD (K21.9) Active confirmed Encounters Encounter Location Date Provider Diagnosis [facility] Outpatient [address] [place] [phone] 02/28/2024 Luis M Santo Colon cancer scree [...] hiatal (ICD-10 - K44.9) Plan Of Treatment Pending Test Test Name Order Date LIVER PROFILE 11/14/2023 Pathology 02/28/2024 Future Test Test Name Order Date UPPER GI ENDOSCOPY 11/14/2023 COLONOSCOPY 11/14/2023 Insurance Providers Payer Name Payer Address Payer Phone Subscriber Number Group Number Insured Name Patient Relationship to Insured Coverage Start Date Coverage End Date [facility] [id number] [place] [address] [id number] CINDY BOYCE Self - patient is the insured Medical (General) History Medical History History ICD Code Denies AR,DM,CVA,Lung disease,renal dise ase EGD 07/2020 --no sig nificant esophagitis and biopsies negative for Miller's esophagus; biopsies negative for celiac disease and H. pylori; biopsies negative for eosinophilic esophagitis IBS Hyperbilirubinemia Hyperlipidemia Surgical History Surgery Date(Month/Year) C5-C6 Herniated disk repair 2003 Arm surgery 1991
--- OUTSIDE RECORDS SUMMARY | 2025-01-07 10:02 | XMS_ITS | Encounter Summary ---
Author Organization [facility] Address [address] [place] [address] Care Team Providers Care Director Emergency Name Role Phone Julieta Castaneda MD Primary Care Provider [phone] Encounter Details Date Type Department Care Team (Late st Contact Info) Description 06/25/2024 Lab Requisition [facility] - Main Lab [address] [facility] [employer] [place] [address] Julieta Castaneda MD [address] [place] [address] [place], [place] [address] Pure hypercholesterolemia , unspecified; Essential (primary) hypertension; Other fatigue; Family history of malignant neoplasm of prostate Social History Tobacco Use Types Packs/Day Years Used Date Smoking Tobacco: Never Assessed Sex and Gender Information Value Date Recorded Sex Assigned at Not on file Legal Sex Male 7:26 PM EST Gender Identity Not on file Sexual Orientation Not on file documented as of this encounter Plan of Treatment Not on file documented as of this encounter Procedures Procedure Name Priority Date/Time Associated Diagnosis Comments PSA TOTAL, FREE AND COMPLEXED, DIAGNOSTIC Routine 06/27/2024 8:19 AM EST Family history of malignant neoplasm of prostate CBC WITH AUTO DIFFERENTIAL Routine 06/27/2024 8:19 AM EST Other fatigue CBC AND DIFFERENTIAL Routine 06/27/2024 8:19 AM EST Other fatigue COMPREHENSIVE METABOLIC PANEL Routine 06/27/2024 8:19 AM EST Pure hypercholesterolemia , unspecified Essential (primary) hypertension documented in this encounter Results * (ABNORMAL) CBC auto differential (06/27/2024 8:19 AM EST) WBC 3.7(L) 4.8 - 10.8 K/mcL LAB HEMETOLOGY METHOD 06/27/2024 9:50 AM [facility] RBC 4.80 4.50 - 5.50 M/mcL LAB HEMETOLOGY METHOD 06/27/2024 9:50 AM [facility] Hemoglobin 15.0 13.5 - 17.5 g/dL LAB HEMETOLOGY METHOD 06/27/2024 9:50 AM [facility] Hematocrit 42.7 42.0 - 54.0 % LAB HEMETOLOGY METHOD 06/27/2024 9:50 AM [facility] MCV 89.9 79.0 - 98.0 FL LAB HEMETOLOGY METHOD 06/27/2024 9:50 AM [facility] MCH 31.6 27.0 - 32.0 pcg LAB HEMETOLOGY METHOD 06/27/2024 9:50 AM [facility] MCHC 35.1 32.0 - 37.0 g/dL LAB HEMETOLOGY METHOD 06/27/2024 9:50 AM [facility] RDW 11.9 11.0 - 15.0 % LAB HEMETOLOGY METHOD 06/27/2024 9:50 AM [facility] Platelets 252 130 - 400 K/mcL LAB HEMETOLOGY METHOD 06/27/2024 9:50 AM [facility] MPV 9.1 7.0 - 11.0 FL LAB HEMETOLOGY METHOD 06/27/2024 9:50 AM [facility] NRBC 0.0 <1.0 % LAB HEMETOLOGY METHOD 06/27/2024 9:50 AM [facility] NRBC Absolute 0.00 <0.10 K/mcL LAB HEMETOLOGY METHOD 06/27/2024 9:50 AM [facility] Neutrophils Relative 49.9 % LAB HEMETOLOGY METHOD 06/27/2024 9:50 AM [facility] Lymphocytes Relative 37.0 % LAB HEMETOLOGY METHOD 06/27/2024 9:50 AM [facility] Monocytes Relative 10.4 % LAB HEMETOLOGY METHOD 06/27/2024 9:50 AM [facility] Eosinophils Relative 1.9 % LAB HEMETOLOGY METHOD 06/27/2024 9:50 AM [facility] Basophils Relative 0.5 % LAB HEMETOLOGY METHOD 06/27/2024 9:50 AM [facility] Immature Granulocytes Relative 0.3 % LAB HEMETOLOGY METHOD 06/27/2024 9:50 AM [facility] Neutrophils Absolute 1.82 1.50 - 7.00 K/mcL LAB HEMETOLOGY METHOD 06/27/2024 9:50 AM [facility] Lymphocytes Absolute 1.35 1.00 - 5.00 K/mcL LAB HEMETOLOGY METHOD 06/27/2024 9:50 AM [facility] Monocytes Absolute 0.38 0.20 - 1.00 K/mcL LAB HEMETOLOGY METHOD 06/27/2024 9:50 AM [facility] Eosinophils Absolute 0.07 0.00 - 0.50 K/mcL LAB HEMETOLOGY METHOD 06/27/2024 9:50 AM [facility] Basophils Absolute 0.02 0.00 - 0.20 K/mcL LAB HEMETOLOGY METHOD 06/27/2024 9:50 AM [facility] Immature Granulocytes Absolute 0.01 0.00 - 0.03 K/mcL LAB HEMETOLOGY METHOD 06/27/2024 9:50 AM [facility] Blood Venous blood specimen / Unknown Venipuncture / Unknown 06/27/2024 8:19 AM EST 06/27/2024 9:31 AM EST Julieta Castaneda MD LAB BLOOD ORDERABLES Final Re sult [facility] [address] [place] [address], [place] [phone] * (ABNORMAL) PSA total, free and complexed, diagnostic (06/27/2024 8:19 AM EST) PSA 1.37 0.00 - 4.00 ng/mL LAB CHEMISTRY METHOD 06/27/2024 11:49 AM EST [facility] PSA, Complexed 1.08 0.00 - 3.00 ng/mL LAB CHEMISTRY METHOD 06/27/2024 11:49 AM EST [facility] PSA, Free 0.3 ng/mL LAB CHEMISTRY METHOD 06/27/2024 11:49 AM EST [facility] PSA, Free Pct 21.9(L) >25.0 % LAB CHEMISTRY METHOD 06/27/2024 11:49 AM EST [facility] Blood Venous blood specimen / Unknown Venipuncture / Unknown 06/27/2024 8:19 AM EST 06/27/2024 9:30 AM EST [facility] - 06/27/2024 11:49 AM EST Free PSA is a calculated value. The diagnostic usefulness of % free PSA has not been established in patients with Total PSA below 2.6 or above 10 ng/mL. This test was performed using the Centaur Chemiluminescent method. PSA values obtained with other methods cannot be used interchangeably. Julieta Castaneda MD LAB BLOOD ORDERABLES Final Re sult [facility] [address] [place] [address], [place] [phone] * (ABNORMAL) Comprehensive metabolic panel (06/27/2024 8:19 AM EST) Pathologist [facility] Sodium 139 133 - 145 mmol/L LAB CHEMISTRY METHOD 06/27/2024 10:23 AM [facility] Potassium 4.1 3.5 - 5.5 mmol/L LAB CHEMISTRY METHOD 06/27/2024 10:23 AM [facility] Chloride 104 96 - 110 mmol/L LAB CHEMISTRY METHOD 06/27/2024 10:23 AM [facility] CO2 28 21 - 32 mmol/L LAB CHEMISTRY METHOD 06/27/2024 10:23 AM [facility] Anion Gap 7 3 - 11 LAB CHEMISTRY METHOD 06/27/2024 10:23 AM [facility] Glucose 122(H) 70 - 100 mg/dL LAB CHEMISTRY METHOD 06/27/2024 10:23 AM [facility] BUN 16 5 - 25 mg/dL LAB CHEMISTRY METHOD 06/27/2024 10:23 AM [facility] Creatinine 1.03 0.70 - 1.30 mg/dL LAB CHEMISTRY METHOD 06/27/2024 10:23 AM [facility] eGFR 91 >=60 mL/min/1. 73m2 LAB CHEMISTRY METHOD 06/27/2024 10:23 AM [facility] Comment:Calculation based on the Chronic Kidney Disease Epidemiology Collaboration (CKD-EPI) equation refit without adjustment for race. BUN/Creatinine Ratio 15.5 LAB CHEMISTRY METHOD 06/27/2024 10:23 AM [facility] Calcium 9.6 8.5 - 10.5 mg/dL LAB CHEMISTRY METHOD 06/27/2024 10:23 AM [facility] AST (SGOT) 19 10 - 42 unit/L LAB CHEMISTRY METHOD 06/27/2024 10:23 AM [facility] ALT (SGPT) 41 10 - 60 unit/L LAB CHEMISTRY METHOD 06/27/2024 10:23 AM [facility] Alkaline Phosphatase 54 42 - 121 unit/L LAB CHEMISTRY METHOD 06/27/2024 10:23 AM [facility] Total Protein 7.5 6.0 - 8.0 g/dL LAB CHEMISTRY METHOD 06/27/2024 10:23 AM EST [facility] Albumin 4.5 3.2 - 5.0 g/dL LAB CHEMISTRY METHOD 06/27/2024 10:23 AM [facility] Total Bilirubin 1.5(H) 0.0 - 1.4 mg/dL LAB CHEMISTRY METHOD 06/27/2024 10:23 AM EST [facility] Blood Venous blood specimen / Unknown Venipuncture / Unknown 06/27/2024 8:19 AM EST 06/27/2024 9:30 AM EST Julieta Castaneda MD LAB BLOOD ORDERABLES Final Re sult [facility] [address] [place] [address], documented in this encounter Visit Diagnoses Diagnosis Pure hypercholesterolemia, unspecified Essential (primary) hypertension Unspecified essential hypertension Other fatigue Family history of malignant neoplasm of prostate documented in this encounter Care Teams Director Emergency Relationship Specialty Start Date End Date Julieta Castaneda MD [address] [place] [address] [place] [address] PCP - General Internal Medicine 06/27/24 documented as of this encounter
--- OUTSIDE RECORDS SUMMARY | 2025-01-07 10:02 | XMS_ITS | Clinical Summary ---
Author Organization [facility] Address [address] [facility] [address] [place] [address] Phone Care Team Providers Care Licensed Therapist Name Role Phone Julieta Castaneda MD Primary Care Provider Allergies No known active allergies Medications sertraline (ZOLOFT) 50 MG tablet Take 50 mg by mouth daily. Active omeprazole (PRILOSEC) 20 MG capsule 12/31/2019 Active atorvastatin (LIPITOR) 20 MG tablet 05/11/2021 Active valACYclovir (VALTREX) 1000 MG tablet 02/02/2021 Active Active Problems Problem Noted Date Diagnosed Date Gastroesophageal reflux disease 10/15/2012 Overview (06/14/2014): Gastroesophageal reflux disease Neck pain 05/17/2012 Overview (06/14/2014): Neck pain; Post-op C5-6 laminotomy Cervical radiculopathy 08/11/2011 Overview (06/14/2014): Cervical radiculopathy; Post op C5-6 left disk rupture, now C4-5 rupture, left Immunizations Immunization Administration Dates Next Due DTaP, unspecified formulation 04/24/2016 INFLUENZA, SPLIT VIRUS, TRIVALENT W/ PRESERVATIV E IM 02/07/2017 Influenza Quadrivalent Preservative Free IM 11/2019,03/06/2018 Influenza, Unspecified Formulation 04/24/2015 Td, unspecified formulation 04/24/2016 Family History Medical History Relation Comments Thyroid disease Maternal Grandmother Relation Status Comments Maternal Grandmother Social History Tobacco Use Types Packs/Day Years Used Date Smoking Tobacco: Never Smokeless Tobacco: Never Alcohol Use Standard Drinks/Week Comments Yes 0 (1 standard drink = 0.6 oz pure alcohol) A couple of glasses of wine per week Education Answer Date Recorded Are you interested in more education? Not on fani e 08/28/2022 Are you concerned about learning? Not on file 08/28/2022 No 08/28/2022 No 08/28/2022 Digital Access Answer Date Recorded No 09/18/2022 No 09/18/2022 No 09/18/2022 Reliable internet access at home? Not on file 09/18/2022 Device with a working camera? Not on file Sex and Gender Information Value Date Recorded Sex Assigned at Not on file Legal Sex Male 6:49 PM EST Gender Identity Not on file Sexual Orientation Not on file Last Filed Vital Signs Vital Sign Reading Time Taken Comments Blood Pressure 121/66 03/19/2022 12:33 PM EST Pulse 55 03/19/2022 12:33 PM EST Temperature 36.8 C (98.2 F) 03/19/2022 12:33 PM EST Respiratory Rate 18 03/19/2022 12:33 PM EST Oxygen Saturation 97% 03/19/2022 12:33 PM EST Inhaled Oxygen Concentration - - Weight 86.2 kg (190 lb) 03/19/2022 12:33 PM EST Height 177.8 cm (5' 10 ) 03/19/2022 12:33 PM EST Body Mass Index 27.26 03/19/2022 12:33 PM EST Plan of Treatment Health Maintenance Due Date Last Done Comments LIPID PANEL 1977 DEPRESSION SCREENING 1989 HEPATITIS C SCREENING 12/30/1995 HIV ONE-TIME SCREENING (18-65 YEARS) 12/30/1995 SCREENING FOR DIABETES 2012 COLOGUARD 2022 COLONOSCOPY 2022 COLORECTAL CANCER SCREENING 2022 FIT TEST 2022 FOBT 2022 SIGMOIDOSCOPY 2022 VIRTUAL COLONOSCOPY 2022 COVID-19 VACCINE () 12/24/2023 05/11/2021, 10/07/2020 INFLUENZA VACCINE (#1) 2024 , 01/30/2020, 03/06/2018, Additional history exists Adult Td,Tdap Booster 04/24/2026 04/24/2016 SMOKING STATUS SCREENING (Once After 26 Yrs) Completed 03/19/2022 HEPATITIS A VACCINES Aged Out No long er eligible based on patient's age to complete this topic HIB VACCINES Aged Out No longer eligi ble based on patient's age to complete this topic MENINGOCOCCAL VACCINES (ACWY) Aged Out No longer eligible based on patient's age to complete this topic MENINGOCOCCAL VACCINES (B) Aged Out N o longer eligible based on patient's age to complete this topic PNEUMOCOCCAL VACCINES (0-49 years) Aged Out No longer eligible based on patient's age to complete this topic Medical Devices Not on file Insurance [facility] Address: [facility] [id number] [place] [phone] [place] [address] [facility] Care Teams Licensed Therapist Relationship Specialty Start Date End Date Julieta Castaneda MD [address] [place] [address] Dr Wolf [place] [phone] PCP - General 10/22/13 Additional Source Comments The information contained in this document represents components of the legal health record. It is not the complete legal health record.[facility]
== END 2025-01-07 08:27 | disposition home or self-care (01) ==
LOC: HO.LAB 08:26
PROVIDERS: PCP Internal Medicine; Visit Provider Internal Medicine
DX: K21.9 Gastro-esophageal reflux disease without esophagitis (principal); E78.00 Pure hypercholesterolemia, unspecified; Z68.27 Body mass index [BMI] 27.0-27.9, adult; Z86.0101 Personal history of adenomatous and serrated colon polyps
CPT/HCPCS: 36415; 80053; 80061